=== PATIENT | female | born 1980 | race Caucasian/White ===

== ENCOUNTER 2021-08-21 07:53 | Emergency (ER) | payer BC ==
[~2021-08-21] VITALS: Ht 170.2 cm; Wt 71.7 kg
[2021-08-21] MEDS ORDERED: TETRACAINE HCL 0.5% OPHT DROP 2 ML BOTTLE OP ONE (08:15)
[2021-08-21] MEDS ORDERED: FLUORESCEIN SODIUM 1 MG STRIP OP ONE (08:15)
--- NOTE | 2021-08-21 08:15 | NUR ---
DR MCNEAL AT BEDSIDE FOR EVALUATION.
[2021-08-21] MEDS ORDERED: CETI-90 PO (08:16)
[2021-08-21] MEDS ORDERED: FLUORESCEIN SODIUM 1 MG STRIP ONE (08:26)
[2021-08-21] MEDS ORDERED: TETRACAINE HCL 0.5% OPHT DROP 2 ML BOTTLE ONE (08:26)
--- NOTE | 2021-08-21 08:27 | NUR ---
Patient discharged to home in stable condition. Written and verbal after care instructions given. Patient verbalizes understanding of instructions. Stressed follow up or return to ER for worsening s/s.
== END 2021-08-21 08:32 | disposition home or self-care (01) ==
LOC: ER 07:53
DX: Z71.1 Person with feared health complaint in whom no diagnosis is made (principal); S61.432A Puncture wound without foreign body of left hand, initial encounter; V49.9XXA Car occupant (driver) (passenger) injured in unspecified traffic accident, initial encounter; Y92.410 Unspecified street and highway as the place of occurrence of the external cause
CPT/HCPCS: A4663